=== PATIENT | male | born 1970 | race Caucasian/White ===

== ENCOUNTER 2021-11-25 12:35 | Emergency (ER) | payer OTHER, SELFPAY ==
--- NOTE | ~2021-11-25 | XR_ITS ---
XR finger 3rd RT min 2V 11/25/2021 13:44 INDICATION: Right third finger pain PROCEDURE: 4 views right third finger COMPARISON: No prior studies for comparison. FINDINGS: Fracture, dislocation or subluxation is not identified. The soft tissues appear within norm al limits. No foreign bodies are identified. IMPRESSION: 1: NO ACUTE BONE OR JOINT ABNORMALITY IDENTIFIED. Reviewed, dictated and finalized at location A.
[2021-11-25 12:47] VITALS: BP 187/119; PULSE 89; RESP 16; TEMP 36.9; O2SAT 96
--- NOTE | 2021-11-25 12:49 | ED.WOUNDLAC ---
HPI - Wound/Laceration General Chief Complaint: Extremity Injury, Upper Stated Complaint: right finger lac Time Seen by Provider: 11/25/21 12:56 Source: patient and RN notes reviewed Mode of arrival: ambulatory Limitations: no limitations History of Present Illness HPI narrative: 51-year-old male with history of hypertension presents with concern for laceration to the fourth digit of the right hand after he dropped a heavy item on it while working on a car. He reports his finger was caught between 2 objects for period of time. He reports laceration to the palmar aspect of the. He also reports numbness to the tip of the digit. He denies decree strength or sensation of the digit. He denies other injury. He is not up-to-date on his tetanus vaccination. Extremity Location: Right: hand Related Data Home Medications Medication Instructions Recorded Confirmed amlodipine 10 mg PO DAILY 11/25/21 11/25/21 lisinopril 40 mg PO DAILY 11/25/21 11/25/21 nebivolol 5 mg PO DAILY 11/25/21 11/25/21 sertraline 25 mg PO DAILY 11/25/21 11/25/21 Allergies Allergy/AdvReac Type Severity Reaction Status Date / Time No Known Allergies Allergy Verified 11/25/21 13:01 Review of Systems Review of Systems: CONSTITUTIONAL: Denies malaise, chills, sweats, or fever. SKIN: Reports laceration to the fourth digit of the right hand MUSCULOSKELETAL: Denies muscle skeletal pain NEUROLOGIC: Reports distal numbness. Denies weakness All systems reviewed & are unremarkable except as noted in HPI and below PMFSH Comments At time of signature, agree with nursing past medical, surgical, social and family history. There is no relevant family history pertinent to the presenting complaint Exam Narrative: GENERAL: Well-appearing, well-nourished, and in no acute distress. HEAD: Normocephalic EYES: PERRLA, conjunctivae clear NECK: Supple. CHEST: Speaks in full sentences. No respiratory distress. HEART: Regular rate and rhythm. Normal and equal peripheral pulses. EXTREMITIES: Fourth digit of right hand has normal strength and limited sensation. 5/5 strength with digit flexion, extension. Range of motion normal. No clubbing, cyanosis, or edema noted. No point tenderness. Limited sensation to the palmar aspect of the distal digit. Can perform 'okay' sign, 'cross over finger test of index and middle fingers' and 'thumbs up' sign. No scissoring. Normal thumb opposition. Good capillary refill and radial pulse. Distal capillary refill less than 3 seconds. Patient is right/left hand dominant SKIN: Warn, dry, intact, pink. No rash. L-shaped deep laceration noted to the palmar aspect of the fourth digit between the PIP and IP joint NEURO: Alert and oriented x3. PSYCH: Normal mood and affect Course Course Emergency Course: Patient is aware of diagnosis, understands and agrees to treatment plan. Anticipatory guidance given. Patient agrees to follow-up as directed and is aware of reasons to seek care at the emergency department. Portions of this record may have been created with voice recognition software Level of Care: Express Care Visit Vital Signs Vital signs: Vital Signs Temperature 98.5 F 11/25/21 12:47 Pulse Rate 89 11/25/21 12:47 Respiratory Rate 16 11/25/21 12:47 Blood Pressure 187/119 H 11/25/21 12:47 Pulse Oximetry 96 11/25/21 12:47 Temperature 98.5 F 11/25/21 12:47 Pulse Rate 89 11/25/21 12:47 Respiratory Rate 16 11/25/21 12:47 Blood Pressure 187/119 H 11/25/21 12:47 Pulse Oximetry 96 11/25/21 12:47 Reviewed. Pt has been instructed to follow up with his primary care provider within the next week regarding his elevated blood pressure today. Procedures Laceration Laceration 1: Date: 11/25/21 Time: 13:00 Site: hand Side (If applicable): right Size (cm): 2.5 Description: irregular Depth: involves muscle layer Pre-repair: wound explored, irrigated extensively and deep
[2021-11-25] MEDS: TETANUS,DIPHTHERIA,AC PERTUSSIS ADULT (0.5 ML) BOOSTRIX IM (13:44)
== END 2021-11-25 14:05 | disposition home or self-care (01) ==
PROVIDERS: Emergency Provider Nurse Practitioner
DX: S61.212A Laceration without foreign body of right middle finger without damage to nail, initial encounter (principal); W20.8XXA Other cause of strike by thrown, projected or falling object, initial encounter; Z23 Encounter for immunization; I10 Essential (primary) hypertension; F41.9 Anxiety disorder, unspecified; F32.A Depression, unspecified
CPT/HCPCS: 12001; 73140; 90471; 90715; 99213; G0463